=== PATIENT | male | born 1960 | race Caucasian/White ===

== ENCOUNTER 2019-01-27 07:00 | Outpatient (CLI) | payer MEDICAID, SELFPAY ==
[2019-01-27 10:37] LABS: Calculated LDL 153 mg/dL; Cholesterol 230 mg/dL (<200); HDL Cholesterol 67 mg/dL (40-60); Triglyceride 54 mg/dL (<150)
== END 2019-01-27 07:20 ==
PROVIDERS: PCP Emergency Medicine; Visit Provider Emergency Medicine
DX: Z13.220 Encounter for screening for lipoid disorders (principal); Z12.5 Encounter for screening for malignant neoplasm of prostate; Z00.00 Encounter for general adult medical examination without abnormal findings
CPT/HCPCS: 36415; 80061; 84153

== ENCOUNTER 2021-04-17 03:46 | Outpatient (CLI) | payer MEDICAID, SELFPAY ==
[2021-04-17 11:42] LABS: Calculated LDL 114 mg/dL (<100); Cholesterol 211 mg/dL (<200); HDL Cholesterol 76 mg/dL (40-60); Triglyceride 105 mg/dL (<150)
== END 2021-04-17 03:47 | disposition home or self-care (01) ==
LOC: LBO 03:46
PROVIDERS: Emergency Medicine; PCP Family Medicine; Visit Provider Family Medicine
DX: E78.5 Hyperlipidemia, unspecified (principal)
CPT/HCPCS: 36415; 80061

== ENCOUNTER 2022-05-29 01:21 | Outpatient (CLI) | payer MEDICAID, SELFPAY ==
--- NOTE | 2022-05-29 12:28 | DI.RAD_ITS ---
Exam(s) XR HIP RT COMPLETE AP PELVIS EXAM: XR HIP RT COMPLETE AP PELVIS INDICATION: increased pain,s/p rt hip replacement, z96.641. COMPARISON: CR RIGHT HIP COMPLETE from 11/06/2012 TECHNIQUE: 2D digital imaging was performed. Three views. FINDINGS: The right hip prosthesis is in place. There are no surrounding bony lucencies. The left hip shows m oderate joint space narrowing. There is prominent spurring at the superior acetabulum. The SI joint s and pubic symphysis are unremarkable. IMPRESSION: Unremarkable right hip prosthesis. 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 DATA REPOSITORY: RADIATION DOSE DELIVERED:
== END 2022-05-29 01:41 ==
LOC: DI 01:23
PROVIDERS: PCP Nurse Practitioner Family; Visit Provider Nurse Practitioner Family
DX: Z96.641 Presence of right artificial hip joint (principal); M25.551 Pain in right hip; M16.12 Unilateral primary osteoarthritis, left hip
CPT/HCPCS: 73502

== ENCOUNTER 2022-06-04 01:58 | Outpatient (CLI) | payer MEDICAID, SELFPAY ==
[2022-06-04 10:29] LABS: Bilirubin Negative (Negative); Blood Negative (Negative); Clarity Clear (Clear); Glucose Negative (Negative); Ketones Negative (Negative); Leukocyte Esterase Negative (Negative); Nitrite Negative (Negative); Urobilinogen 0.2 mg/dL (Up to 0.2)
[2022-06-04 11:05] LABS: ALT 35 U/L (16-63); AST 18 U/L (15-37); Albumin 4.5 g/dL (3.4-5.0); Alkaline Phosphatase 60 U/L (46-116); Anion Gap 6.2 mmol/L (3-11); BUN 16 mg/dL (7-18); Bilirubin, Total 0.5 mg/dL (0.2-1.0); CO2 29.8 mmol/L (21.0-32.0); CREATININE 0.9 mg/dL (0.70-1.30); Calcium 9.1 mg/dL (8.5-10.1); Calculated LDL 76 mg/dL (<100); Chloride 105 mmol/L (98-107); Cholesterol 155 mg/dL (<200); Estimated GFR 96.57 (mL/min/1.73m2); Glucose 87 mg/dL (74-106); HDL Cholesterol 61 mg/dL (40-60); Potassium 4.1 mmol/L (3.5-5.1); Sodium 141 mmol/L (136-145); Total Protein 7.6 g/dL (6.4-8.2); Triglyceride 93 mg/dL (<150)
[2022-06-04 19:19] LABS: PSA, Diagnostic 0.9 ng/mL (<=4.5)
== END 2022-06-04 01:59 | disposition home or self-care (01) ==
PROVIDERS: PCP Nurse Practitioner Family; Visit Provider Nurse Practitioner Family
DX: Z13.1 Encounter for screening for diabetes mellitus (principal); E78.5 Hyperlipidemia, unspecified; R35.1 Nocturia
CPT/HCPCS: 36415; 80053; 80061; 81003; 84153

== ENCOUNTER 2022-06-10 11:23 | Day surgery (SDC) | payer MEDICAID, SELFPAY ==
--- NOTE | 2022-06-09 21:09 | W.PM.DSUDISC ---
Date of service: 06/10/22 Time of Service: 13:33 Discharge Plan Disposition Patient Disposition: Home Condition: Good Discharge Details Reason For Visit: colonoscopy Attending Provider: Asif Morley Primary Care Provider: Anthony Pavon Home Meds and New Rx's Prescriptions: Continued Simbrinza 1-0.2 % drops,suspension 1 drp ophthalmic (eye) BID Patient Comments: both eyes rosuvastatin [Crestor] 10 mg tablet 10 mg PO DAILY Qty: 90 3RF multivitamin 1 EACH tablet 1 ea PO DAILY ascorbic acid (vitamin C) 500 MG tablet 500 mg PO DAILY Patient Comments: 01/10/17 takes a 1000mg tablet. CM ibuprofen 200 MG capsule 2 cap PO HS Discontinued polyethylene glycol 3350 17 gram/dose powder 238 g PO ONCE Qty: 238 0RF Rx Instructions: take per colonoscopy instructions bisacodyl [Dulcolax (bisacodyl)] 5 mg tablet,delayed release (DR/EC) 5 mg PO ONCE Qty: 4 0RF Rx Instructions: take per colonoscopy instructions Discharge Instructions Instructions: Diverticulosis (GEN), Diverticulosis Diet (GEN) Additional Instructions: Abel, we were able to complete your colonoscopy today without any difficulty. You do have a fair amount of sigmoid diverticulosis. I have attached some some information here regarding diverticular disease and the general principles of management. Otherwise, I did not see any signs of polyps or tumors. You will need another colonoscopy in 10 years. 1. If tolerated, consume a soft, low fiber diet for 1-2 days. 2. Do not drive, drink alcohol, operate machinery, make critical decisions, or do activities that require coordination or balance for 24 hours. 3. Because air was put into your colon during the procedure, expelling air from your rectum (passing gas or farting) is normal. 4. You may not have a bowel movement for 1-3 days because of the colonoscopy prep. This is normal. 5. Go directly to the emergency room if you notice any of the following: Develop chills (warm to touch), or if you have a thermometer and your temperature is above 101 Difficulty breathing or difficultly swallowing Persistent vomiting Severe abdominal pain, other than gas cramps Severe chest pain Black, tarry stools Any bleeding ? exceeding one tablespoon 6. Call your physician if the site where your intravenous was started becomes red, swollen, painful, and warm to touch. 7. Your physician has reviewed your pre-procedure medications. Please continue to take those medications as previously ordered. You will be given specific information/education regarding any changes to your medications before leaving. Activity:: Activity as Tolerated Diet:: As Tolerated Discharge Orders Discharge Orders: Discharge Order (Routine); Ordered 06/09/22 Ordered By: Asif Morley DS: Diagnosis Discharge Diagnosis (1) Screening for colon cancer: Status: Acute Asessment and Plan: Negative screening colonoscopy
--- NOTE | 2022-06-09 21:11 | W.COLOREPORT ---
Date of service: 06/10/22 Time of Service: 13:34 Colonoscopy Report Date of procedure: 06/10/22 Pre-op diagnosis general: Screening colonoscopy Post-op diagnosis procedure note: other (Diverticulosis) Procedure: colonoscopy Surgeon: Asif Morley Anesthesia Type: General:No Airway Estimated blood loss (mL): 0 Pathology: none sent Complications: None Disposition: same day Indications: Abel is a 61-year-old male following up with his next screening colonoscopy Prep: Miralax/Dulcolax Procedure Start Time: 13:11 Procedure End Time: 13:26 Retraction Time: 9 Findings: Sigmoid diverticulosis Procedure Description: After the induction of monitored anesthetic care, and with the patient in left lateral decubitus position, I began by performing an external anorectal exam.? Perineum and skin were normal, as was the anal verge.? There was no not evidence of external hemorrhoids.? Next, I performed a digital rectal exam.? I did appreciate any abnormal findings.? Next, I advanced a colonoscope into the rectal vault.? I performed retroflexion.? This was normal.? Using insufflation, I then advanced the colonoscope beyond the rectal folds and into the sigmoid colon before advancing towards the cecum.? The quality of the prep was excellent.? There was sigmoid diverticulosis. The scope was noted to be in the cecum by identification of the ileocecal valve and appendiceal orifice.? I then began withdrawing the colonoscope using repeated irrigation as necessary for full evaluation of the colonic mucosa. ?Once the scope was withdrawn to the level of the rectum, great care was taken to examine portions of the rectal folds.? I did not see any signs of tumors or polyps. finally, the scope was withdrawn and the patient was brought to the same-day surgery recovery unit as the anesthetic wore off. ?The findings and instructions were shared with the patient prior to discharge.
[2022-06-10 12:09] VITALS: BP 129/85; PULSE 84; RESP 16; TEMP 36.1; O2SAT 99
[2022-06-10] MEDS: Lactated Ringers 1,000 ML 80 ML IV (12:37)
--- NOTE | 2022-06-10 12:41 | ANES.PREOP_ITS ---
General Info Date of Service Date Performed: 06/10/22 Height: 5 ft 8 in Weight: 73.7 kg Body Mass Index (BMI): 24.7 Surgical Procedure: Operation Date: 06/10/22 13:05 Proposed Procedure Side Surgeon toñito Morley MD Meds Allergies and Home Medications Allergies Allergy/AdvReac Type Severity Reaction Status Date / Time No Known Allergies Allergy Verified 06/10/22 12:02 Home Medication Medication Instructions Recorded ascorbic acid (vitamin C) 500 mg 500 mg PO DAILY 10/13/12 tablet multivitamin 1 ea PO DAILY 10/13/12 ibuprofen 200 mg capsule 2 cap PO HS 01/05/16 brinzolamide 1 %-brimonidine 0.2 % 1 drp ophthalmic (eye) BID 04/03/21 eye drops,suspension (Simbrinza) rosuvastatin 10 mg tablet (Crestor) 10 mg PO DAILY #90 tabs 05/28/22 Current Visit Medications: Current Medications Generic Name Dose Route Start Last Admin Trade Name Freq PRN Reason Stop Dose Admin Hyoscyamine Sulfate 0.125 mg 06/09/22 21:12 Hyoscyamine 0.125 Mg Sl/Oral/Chew SL DIRECTED PRN Ringer's Solution 1,000 mls @ 80 mls/hr 06/10/22 06:00 06/10/22 12:37 IV 07/07/22 23:59 80 mls/hr INFUSION JOSE ALFREDO Administration IV Miscellaneous Supplies 1 each 06/10/22 06:00 Iv Access IV 07/07/22 23:59 DIRECTED JOSE ALFREDO Ondansetron HCl 4 mg 06/09/22 21:12 Ondansetron 4 Mg/2 Ml Vial IVP Q4H PRN PRN Nausea / Vomiting Sodium Chloride 0 ml 06/10/22 06:00 Normal Saline Flush 10 Ml Syr IV 07/07/22 23:59 PRN PRN Sodium Chloride 0 ml 06/10/22 06:00 Normal Saline 10 Ml Vial IJ 07/07/22 23:59 DIRECTED PRN Sterile Water 0 ml 06/10/22 06:00 Water,Injection,Sterile 10 Ml Vial IJ 07/07/22 23:59 DIRECTED PRN PFSH Active Problems Active Problems: Problem Status Onset Code 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 Diverticulosis of colon without diverticulitis K57.30 Closed fracture T14.8XXA Hyperlipidemia E78.5 Inguinal hernia, incarcerated 05/05/17 K40.30 Sciatica M54.30 Status post right hip replacement 01/05/16 Z96.641 Glaucoma H40.9 Other deformities of toe(s) (acquired), 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 RODRIGUEZ; SIGMOID DIVERTICULOSIS History of back surgery Hx of total hip arthroplasty Right Repair of inguinal hernia strangulated hernia-ruptured left testis Tonsillectomy and adenoidectomy Vasectomy Tobacco Smoking/Tobacco Use Status: Never Passive smoking exposure: Yes Second hand exposure: Yes Alcohol Alcohol Intake: former Substance Use Substance use: Never Substance use type: does not use Vital Signs and Lab Results Vital Signs Most Recent Vital Signs in EMR: Most Recent Vital Signs Temp Pulse Resp BP Pulse Ox 36.1 C L 84 16 129/85 99 06/10/22 12:09 06/10/22 12:09 06/10/22 12:09 06/10/22 12:09 06/10/22 12:09 Lab Results Blood Type / Crossmatch: No Data to Display Complete Blood Count: No Data to Display Complete Metabolic Panel: Sodium 141 mmol/L (136-145) 06/04/22 10:23 Potassium 4.1 mmol/L (3.5-5.1) 06/04/22 10:23 Chloride 105 mmol/L (98-107) 06/04/22 10:23 Carbon Dioxide 29.8 mmol/L (21.0-32.0) 06/04/22 10:23 BUN 16 mg/dL (7-18) 06/04/22 10:23 Creatinine 0.9 mg/dL (0.70-1.30) 06/04/22 10:23 Est GFR (CKD-EPI 2020) 96.57 (mL/min/1.73m2) 06/04/22 10:23 Calcium 9.1 mg/dL (8.5-10.1) 06/04/22 10:23 Albumin 4.5 g/dL (3.4-5.0) 06/04/22 10:23 Glucose 87 mg/dL (74-106) 06/04/22 10:23 Liver Function Panel: Alanine Aminotransferase (ALT/SGPT) 35 U/L (16-63) 06/04/22 10: 23 Aspartate Amino Transf (AST/SGOT) 18 U/L (15-37) 06/04/22 10:23 Coagulation Panel: No Data to Display Cardiac Panel: No Data to Display Arterial Blood Gas: No Data to Display Venous Blood Gas: 2 No Data to Display Pancreas Panel: No Data to Display Thyroid Panel: No Data to Display Infectious Disease: No Data to Display Blood Cultures: No Data to Display Toxicology Panel: No Data to Display Anesthesia Assessment and Plan Anesthesia History Personal History: No History of Anesthesia Complications Family History: No Family History of Anesthesia Complications Exercise Tolerance Exercise Tolerance: Metabolic Equivalents>4 Pertinent Negatives Pertinent Negatives: No Symptoms of GERD, No Major Cardiovascular Symptoms or Complaints and No Major Pulmonary Symptoms or Complaints Cardiac & Pulmonary Exam Cardiac Exam: Normal S1/S2 Heart Sounds Pulmonary Exam: Clear Bilateral Breath Sounds Implantable Cardiac Device Does patient have a Pacemaker or an ICD?: No Airway Exam Known Difficult Airway: No Mallampati Class: 2 Mouth Opening: Normal (> 3cm) Thyromental Distance: Greater than 3 cm Neck Range of Motion: Full ROM Neck Circumference: Normal Teeth Condition: Normal Dentition ASA Classification ASA Score: ASA 2 Emergency Case?: No NPO Status NPO Status: NPO Clears >2 hours, Solids >8 hours Anesthesia Plan Resuscitation Status: Full Code Anesthesia Technique: General Anesthesia Airway Planned: Natural Airway Monitors Used: Standard Monitors
[2022-06-10 12:44] VITALS: BMI 24.7
[2022-06-10 13:30] VITALS: BP 123/85; PULSE 91; RESP 16; TEMP 36.5; O2SAT 96
--- NOTE | 2022-06-10 13:46 | W.ANESPOSTOP ---
Postoperative Evaluation Date, Time and Location Date Performed: 06/10/22 Time Performed: 13:35 Patient Location: Day Surgery Unit Vital Signs Most Recent Imported Vital Signs: Most Recent Vital Signs Temp Pulse Resp BP Pulse Ox 36.5 C 91 H 16 123/85 96 06/10/22 13:30 06/10/22 13:30 06/10/22 13:30 06/10/22 13:30 06/10/22 13:30 Pain Score Most Recent Pain Score: Most Recent Pain Score Pain Level 0 06/10/22 13:30 Assessment Mental Status: Arousable with meaningful communication Airway and Respiratory Function: Patent airway with normal (patient baseline) respiratory exam Cardiovascular Function: Hemodynamically Stable Hydration Status: Adequately Hydrated Nausea & Vomiting: No Nausea or Vomiting Pain: Pt. Denies Any Pain Peripheral Nerve Block: Patient did not receive a nerve block
[2022-06-10 14:06] VITALS: BP 138/81; PULSE 72; RESP 16; TEMP 36; O2SAT 100
== END 2022-06-10 14:22 | disposition home or self-care (01) ==
PROVIDERS: PCP Nurse Practitioner Family; Visit Provider Surgery
PROC: 0DJD8ZZ Inspection of Lower Intestinal Tract, Via Natural or Artificial Opening Endoscopic (ICD-10-PCS; CPT 45378; principal; 2022-06-10 13:00)
DX: Z12.11 Encounter for screening for malignant neoplasm of colon (principal); K57.30 Diverticulosis of large intestine without perforation or abscess without bleeding
CPT/HCPCS: 45378

== ENCOUNTER 2023-06-09 14:19 | Outpatient (REF) | payer MEDICAID, SELFPAY ==
[2023-06-09 22:40] LABS: ALT 32 U/L (16-63); AST 18 U/L (15-37); Albumin 4.7 g/dL (3.4-5.0); Alkaline Phosphatase 60 U/L (46-116); Anion Gap 7.8 mmol/L (3-11); BUN 20 mg/dL (7-18); Bilirubin, Total 0.6 mg/dL (0.2-1.0); CO2 29.2 mmol/L (21.0-32.0); CREATININE 0.9 mg/dL (0.70-1.30); Calcium 9.2 mg/dL (8.5-10.1); Calculated LDL 77 mg/dL (<100); Chloride 106 mmol/L (98-107); Cholesterol 162 mg/dL (<200); Estimated GFR 95.97 (mL/min/1.73m2); Glucose 94 mg/dL (74-106); HDL Cholesterol 69 mg/dL (40-60); Potassium 4.7 mmol/L (3.5-5.1); Sodium 143 mmol/L (136-145); Total Protein 7.3 g/dL (6.4-8.2); Triglyceride 83 mg/dL (<150)
[2023-06-10 17:55] LABS: PSA, Screening 1.5 ng/mL (<=4.5)
== END 2023-06-09 14:20 | disposition home or self-care (01) ==
LOC: LBN 14:19
PROVIDERS: PCP Nurse Practitioner Family; Visit Provider Nurse Practitioner Family
DX: R35.1 Nocturia (principal); E78.5 Hyperlipidemia, unspecified; Z12.5 Encounter for screening for malignant neoplasm of prostate
CPT/HCPCS: 80053; 80061; 84153

== ENCOUNTER 2023-07-22 16:01 | Outpatient (REF) | payer BC, SELFPAY ==
[2023-07-22 22:06] LABS: Bacteria Negative HPF (Negative); C & S Indicated? No; Casts Negative LPF (Negative); Crystals Negative HPF (Negative); Epithelial Cells Rare HPF (Negative); Mucus Negative (Negative); WBC 0-2 HPF (0-5)
== END 2023-07-22 16:02 | disposition home or self-care (01) ==
LOC: LBN 16:01
PROVIDERS: PCP Nurse Practitioner Family; Visit Provider Nurse Practitioner Family
DX: R31.9 Hematuria, unspecified (principal)
CPT/HCPCS: 81015